=== PATIENT | male | born 1950 | race Caucasian/White ===

== ENCOUNTER 2021-06-15 23:43 | Emergency (ER) | payer MEDICARE ==
[2021-06-16 00:30] VITALS: BP 173/85
== END 2021-06-16 00:42 | disposition home or self-care (01) ==
LOC: ED 23:43
DX: S05.01XA Injury of conjunctiva and corneal abrasion without foreign body, right eye, initial encounter (principal); W22.8XXA Striking against or struck by other objects, initial encounter; Y93.89 Activity, other specified; Y92.89 Other specified places as the place of occurrence of the external cause; Y99.8 Other external cause status